=== PATIENT | male | born 1940 | race African-American/Black ===

== ENCOUNTER 2017-07-07 15:49 | Emergency (ER) | payer MEDICARE, MEDICAID ==
[~2017-07-07] VITALS: Ht 165.1 cm; Wt 69.0 kg
[2017-07-07 16:39] VITALS: BP 191/70
== END 2017-07-07 18:38 | disposition home or self-care (01) ==
LOC: ER 15:49
DX: B86 Scabies (principal); R21 Rash and other nonspecific skin eruption; E78.00 Pure hypercholesterolemia, unspecified; Z59.0 Homelessness; Z95.5 Presence of coronary angioplasty implant and graft
CPT/HCPCS: 99282

== ENCOUNTER 2019-05-21 12:10 | Emergency (ER) | payer MEDICARE, MEDICAID ==
[~2019-05-21] VITALS: Ht 175.3 cm; Wt 73.0 kg
[2019-05-21 13:07] VITALS: BP 179/98
== END 2019-05-21 14:05 | disposition home or self-care (01) ==
LOC: ER 12:10
DX: B86 Scabies (principal); E78.00 Pure hypercholesterolemia, unspecified; Z98.61 Coronary angioplasty status
CPT/HCPCS: 99283